=== PATIENT | male | born 1945 | race Caucasian/White ===

== ENCOUNTER 2019-05-01 12:34 | Inpatient (IN) | payer OTHER ==
[2019-05-01 15:41] VITALS: BMI 27.6
--- NOTE | 2019-05-01 17:12 | HP ---
CIWA Score Nausea/Vomitin-No Nausea/No Vomiting Muscle Tremors: 3 Anxiety: 1-Mildly Anxious Agitation: 1-Slight > Activity Paroxysmal Sweats: No Perspiration Orientation: 0-Oriented Tacttile Disturbances: 0-None Auditory Disturbances: 0-None Visual Disturbances: 0-None Headache: 0-None Present CIWA-Ar Total Score: 5 - Admission Criteria OASAS Guidelines: Admission for Medically Managed Detox: Requires at least one of the followin. CIWA greater than 12 2. Seizures within the past 24 hours 3. Delirium tremens within the past 24 hours 4. Hallucinations within the past 24 hours 5. Acute intervention needed for co occurring medical disorder 6. Acute intervention needed for co occurring psychiatric disorder 7. Severe withdrawal that cannot be handled at a lower level of care (continued vomiting, continued diarrhea, abnormal vital signs) requiring intravenous medication and/or fluids 8. Admission ROS [facility] Chief Complaint: alcohol detox Allergies/Adverse Reactions: Allergies Allergy/AdvReac Type Severity Reaction Status Date / Time No Known Allergies Allergy Verified 05/01/19 15:31 History of Present Illness: Patient is a 74 yo M with a PMHx of HTN, asthma, presenting here for alcohol detox. He was hospitalized today for intoxication and was likely given a benzo. Patient is a Poor historian. Not reliable. Has been drinking for 21 years. Drinks 2 pints of vodka every day. Last drink was last night. No hx of seizures. Unemployed. Homeless. Exam Limitations: Language Barrier - Ebola screening Have you traveled outside of the country in the last 21 days: No (N) Have you had contact with anyone from an Ebola affected area: No Do you have a fever: No - Review of Systems Respiratory: reports: Shortness of Breath. denies: Cough Cardiac: denies: Chest Pain, Palpitations Patient History - Patient Medical History Hx Anemia: No Hx Asthma: Yes (albuterol) Hx Chronic Obstructive Pulmonary Disease (COPD): No Hx Cancer: No Hx Cardiac Disorders: No Hx Congestive Heart Failure: No Hx Hypertension: No Hx Hypercholesterolemia: No Hx Pacemaker: No HX Cerebrovascular Accident: No Hx Seizures: No Hx Dementia: No Hx Diabetes: No Hx Gastrointestinal Disorders: No Hx Liver Disease: No Hx Genitourinary Disorders: No Hx Sexually Transmitted Disorders: No Hx Renal Disease (ESRD): No Hx Thyroid Disease: No Hx Human Immunodeficiency Virus (HIV): No Hx Hepatitis C: No Hx Depression: Yes (hx trazadone) Hx Suicide Attempt: No Hx Bipolar Disorder: No Hx Schizophrenia: No - Patient Surgical History Past Surgical History: No Hx Neurologic Surgery: No Hx Cataract Extraction: No Hx Cardiac Surgery: No Hx Lung Surgery: No Hx Breast Surgery: No Hx Breast Biopsy: No Hx Abdominal Surgery: No Hx Appendectomy: No Hx Cholecystectomy: No Hx Genitourinary Surgery: No Hx Section: No Hx Orthopedic Surgery: No Anesthesia Reaction: No - PPD History Date: 05/23/16 - Smoking Cessation Smoking history: Former smoker Have you smoked in the past 12 months: No Aproximately how many cigarettes per day: 0 If you are a former smoker, when did you quit?: 2014 Hx Chewing Tobacco Use: No Initiated information on smoking cessation: Yes 'Breaking Loose' booklet given: 05/01/19 - Substances abused Alcohol Substance route: Oral Frequency: Daily Amount used: 1 -2 pint vodka Age of first use: 23 Date of last use: 04/29/19 Family Disease History - Family Disease History Family History: Unremarkable Family Disease History: Other: Brother (ALCOHOL) Admission Physical Exam BHS - Vital Signs Vital Signs: Vital Signs - 24 hr 05/01/19 15:30 Temperature 98.4 F Pulse Rate 75 Respiratory 18 Rate Blood Pressure 154/93 - Physical General Appearance: Yes: No Apparent Distress Respiratory: Yes: No Respiratory Distress, No Accessory Muscle Use, Wheezing ( mild exp wheezing) Cardiology: Yes: Regular Rate, S1, S2 Abdominal: Yes: Non Tender, Soft Extremities: Yes: Swelling (1+ edema b/l) Integumentary: Yes: Rash Breathalyzer - Breathalyzer Breathalyzer: 0.012 Urine Drug Screen - Test Device Lot number: [id number] Expiration date: 01/24/21 - Control Is test valid?: Yes - Results Drug screen NEGATIVE: No Urine drug screen results: BZO-Benzodiazepines Inpatient Rehab Admission - Rehab Decision to Admit Inpatient rehab admission?: No
[2019-05-01] MEDS ORDERED: chlordiazePOXIDE HCL 10 MG CAPSULE PO PRN (17:54)
[2019-05-01] MEDS ORDERED: METHOCARBAMOL 500 MG TABLET PO PRN (17:55)
[2019-05-01] MEDS ORDERED: MAGNESIUM CITRATE 300 ML BOTTLE PO PRN (17:55)
[2019-05-01] MEDS ORDERED: MENTHOL/PHENOL 1 EACH UD MM PRN (17:55)
[2019-05-01] MEDS ORDERED: MELATONIN 5 MG TABLETS PO PRN (17:55)
[2019-05-01] MEDS ORDERED: MAGNESIUM HYDROX 2400MG/30ML ORAL SUSPENSION 30 ML CUP PO PRN (17:55)
[2019-05-01] MEDS ORDERED: IBUPROFEN 400 MG TABLET (FP) PO PRN (17:55)
[2019-05-01] MEDS ORDERED: BISMUTH SUBSALICYLATE 524 MG/30 ML UD PO PRN (17:55)
[2019-05-01] MEDS ORDERED: ACETAMINOPHEN 325 MG TABLET (FP) PO PRN ×2 (17:55)
[2019-05-01] MEDS ORDERED: MAG HYDROX/AL HYDROX/SIMETH 30 ML UNIT-DOSE CUP PO PRN (17:55)
--- NOTE | 2019-05-01 18:18 | PN ---
Teaching Attending Note Name of Resident: Parmjit Simon ATTENDING PHYSICIAN STATEMENT I saw and evaluated the patient. I reviewed the resident's note and discussed the case with the resident. I agree with the resident's findings and plan as documented. SUBJECTIVE: 74 y.o. male for etoh detox , reports 2 pints / day , reports tremors if not drinking , falls while intoxicated most recently several months ago w/ ? skull frx , unsteady gait . Was in a hospital today- pt does not recall name of hospital or location , states was given IV fluids. PMHx ; asthma, HTN OBJECTIVE: wnwd , tremors UE , anxious, agitated. Vital Signs - 24 hr 05/01/19 15:30 Temperature 98.4 F Pulse Rate 75 Respiratory 18 Rate Blood Pressure 154/93 ASSESSMENT AND PLAN: etoh dependence -Librium detox protocol.
[2019-05-01] MEDS: ALBUTEROL SO4 8 GM HFA INHALER IH SCH ×2 (20:05→21:34)
[2019-05-01] MEDS: chlordiazePOXIDE HCL 25 MG CAPSULE PO SCH (20:06)
[2019-05-01] MEDS: THIAMINE HCL 100 MG TABLET (FP) PO SCH (21:33)
[2019-05-01] MEDS: ALBUTEROL SO4 2.5/IPRATROPIUM 0.5 INH SOL 3 ML VIAL.NEB. NEB SCH (23:16)
[2019-05-01] MEDS: hydrOXYzine PAMOATE 25 MG CAPSULE (FP) PO PRN (23:57)
[2019-05-02] MEDS: ALBUTEROL SO4 8 GM HFA INHALER IH SCH ×3 (03:26→11:03)
[2019-05-02] MEDS: chlordiazePOXIDE HCL 25 MG CAPSULE PO SCH ×3 (06:27→22:40)
[2019-05-02] MEDS: PRENATAL VITAMINS W/ FOLIC ACID TABLET (FP) PO SCH (11:03)
[2019-05-02] MEDS: ALBUTEROL SO4 2.5/IPRATROPIUM 0.5 INH SOL 3 ML VIAL.NEB. NEB SCH ×4 (11:04→22:40)
[2019-05-02 12:11] LABS: HEMATOCRIT 37.9 % (35.4-49); HEMOGLOBIN 12.4 GM/dL (11.7-16.9); MCH 30.1 pg (25.7-33.7); MCHC 32.7 g/dl (32.0-35.9); MEAN CELL VOLUME 92.2 fl (80-96); MEAN PLT VOLUME 9.1 fl (7.5-11.1); PLATELET COUNT 173 K/MM3 (134-434); RBC 4.11 M/mm3 (4.00-5.60); RDW 17.5 % (11.9-15.9); WHITE BLOOD COUNT 5.2 K/mm3 (4.0-10.0)
[2019-05-02 12:23] LABS: ALBUMIN 3.3 g/dl (3.4-5.0); BILIRUBIN,TOTAL 0.6 mg/dL (0.2-1); BLOOD UREA NITROGEN 11.3 mg/dL (7-18); CALCIUM 8.4 mg/dL (8.5-10.1); CREATININE 0.8 mg/dL (0.55-1.3); POTASSIUM 3.1 mmol/L (3.5-5.1); TOT PROT 6.4 g/dl (6.4-8.2)
[2019-05-02] MEDS: hydrOXYzine PAMOATE 25 MG CAPSULE (FP) PO PRN (13:12)
--- NOTE | 2019-05-02 16:43 | PN ---
[facility] CIWA - CIWA Score Nausea/Vomitin-No Nausea/No Vomiting Muscle Tremors: 2 Anxiety: 2 Agitation: 1-Slight > Activity Paroxysmal Sweats: 3 Orientation: 2-Disoriented Date<2 days Tacttile Disturbances: 0-None Auditory Disturbances: 0-None Visual Disturbances: 0-None Headache: 0-None Present CIWA-Ar Total Score: 10 BHS Progress Note (SOAP) Subjective: Fatigue, Anxious, Tremors, Sweating. Objective: PATIENT A & O X 2 (UNCERTAIN ABOUT CURRENT DAY / DATE). PATIENT OBSERVED MOVING ABOUT DETOX UNIT IN A WHEELCHAIR. IN NO ACUTE DISTRESS. 05/02/19 16:40 Vital Signs Temperature 97 F L 05/02/19 14:37 Pulse Rate 78 05/02/19 14:37 Respiratory Rate 16 05/02/19 14:37 Blood Pressure 141/82 05/02/19 14:37 O2 Sat by Pulse Oximetry (%) Laboratory Tests 05/02/19 05/02/19 05/02/19 09:05 09:05 09:05 WBC 5.2 RBC 4.11 Hgb 12.4 Hct 37.9 MCV 92.2 MCH 30.1 MCHC 32.7 RDW 17.5 H Plt Count 173 D MPV 9.1 Sodium 142 Potassium 3.1 L Chloride 102 Carbon Dioxide 29 Anion Gap 11 BUN 11.3 Creatinine 0.8 Est GFR (CKD-EPI)AfAm 103.44 Est GFR (CKD-EPI)NonAf 89.25 Random Glucose 149 H Calcium 8.4 L Total Bilirubin 0.6 AST 23 ALT 21 Alkaline Phosphatase 70 Total Protein 6.4 Albumin 3.3 L RPR Titer Nonreactive LABS NOTED. Assessment: 05/02/19 16:44 WITHDRAWAL SYMPTOMS. HYPOKALEMIA. HYPERGLYCEMIA. 05/02/19 16:44 Plan: CONTINUE DETOX. INCREASE DAILY PO WATER INTAKE. K-DUR, 40 MEQ PO X 1 DOSE TODAY, 20 MEQ PO BID TOMORROW. RE-CHECK K LEVEL ON 03/2019. BGM ACBK FOR ELEVATED RANDOM GLUCOSE LEVEL NOTE DON DETOX ADMISSION LABORATORY ASSESSMENT (NO HISTORY OF DM REPORTED BY PATIENT ON DETOX ADMISSION ASSESSMENT).
[2019-05-02] MEDS ORDERED: POTASSIUM CHLORIDE ORAL LIQUID 20 MEQ/15 ML PO ONE (17:00)
[2019-05-02] MEDS: THIAMINE HCL 100 MG TABLET (FP) PO SCH (22:40)
[2019-05-03] MEDS: chlordiazePOXIDE 5 MG CAPSULE PO SCH ×3 (06:09→22:39)
[2019-05-03] MEDS: ALBUTEROL SO4 8 GM HFA INHALER IH PRN ×2 (06:31→22:40)
[2019-05-03] MEDS: POTASSIUM CHLORIDE ORAL LIQUID 20 MEQ/15 ML PO SCH ×2 (11:04→17:29)
[2019-05-03] MEDS: ALBUTEROL SO4 2.5/IPRATROPIUM 0.5 INH SOL 3 ML VIAL.NEB. NEB SCH ×3 (11:04→22:40)
[2019-05-03] MEDS: PRENATAL VITAMINS W/ FOLIC ACID TABLET (FP) PO SCH (11:04)
[2019-05-03] MEDS ORDERED: ONDANSETRON *ODT* 4 MG TABLET SL PRN (16:24)
--- NOTE | 2019-05-03 16:28 | PN ---
S CIWA - CIWA Score Nausea/Vomitin Muscle Tremors: 3 Anxiety: 3 Agitation: 0-Normal Activity Paroxysmal Sweats: No Perspiration Orientation: 2-Disoriented Date<2 days Tacttile Disturbances: 0-None Auditory Disturbances: 0-None Visual Disturbances: 0-None Headache: 2-Mild CIWA-Ar Total Score: 15 BHS Progress Note (SOAP) Subjective: Vomiting, H/A, Tremors. Objective: PATIENT A & O X 2 (UNCERTAIN ABOUT CURRENT DAY / DATE). IN NO ACUTE DISTRESS. 05/03/19 16:24 Vital Signs Temperature 98.8 F 05/03/19 13:21 Pulse Rate 71 05/03/19 13:21 Respiratory Rate 18 05/03/19 13:21 Blood Pressure 140/78 05/03/19 13:21 O2 Sat by Pulse Oximetry (%) Laboratory Tests 05/02/19 05/02/19 05/02/19 09:05 09:05 09:05 WBC 5.2 RBC 4.11 Hgb 12.4 Hct 37.9 MCV 92.2 MCH 30.1 MCHC 32.7 RDW 17.5 H Plt Count 173 D MPV 9.1 Sodium 142 Potassium 3.1 L Chloride 102 Carbon Dioxide 29 Anion Gap 11 BUN 11.3 Creatinine 0.8 Est GFR (CKD-EPI)AfAm 103.44 Est GFR (CKD-EPI)NonAf 89.25 POC Glucometer Random Glucose 149 H Calcium 8.4 L Total Bilirubin 0.6 AST 23 ALT 21 Alkaline Phosphatase 70 Total Protein 6.4 Albumin 3.3 L RPR Titer Nonreactive 05/03/19 06:23 WBC RBC Hgb Hct MCV MCH MCHC RDW Plt Count MPV Sodium Potassium Chloride Carbon Dioxide Anion Gap BUN Creatinine Est GFR (CKD-EPI)AfAm Est GFR (CKD-EPI)NonAf POC Glucometer 99 Random Glucose Calcium Total Bilirubin AST ALT Alkaline Phosphatase Total Protein Albumin RPR Titer LABS NOTED. RESTING OF FASTING BGM FROM EARLIER THIS AM NOTED (RESULT: 99, WITHIN NORMAL RANGE). 05/03/19 16:26 Assessment: 05/03/19 16:25 WITHDRAWAL SYMPTOMS. HYPOKALEMIA. 05/03/19 16:26 Plan: CONTINUE DETOX. PRN ZOFRAN SL FOR NAUSEA / VOMITING. REPEAT POTASSIUM LEVEL ORDERED FOR TOMORROW AM TO SEE IF ANY CHANGE FORM DETOX ADMISSION POTASSIUM LEVEL.
[2019-05-03] MEDS: THIAMINE HCL 100 MG TABLET (FP) PO SCH (22:39)
[2019-05-04] MEDS ORDERED: chlordiazePOXIDE HCL 10 MG CAPSULE PO PRN
[2019-05-04] MEDS: chlordiazePOXIDE HCL 10 MG CAPSULE PO SCH ×3 (06:06→22:58)
[2019-05-04] MEDS: ALBUTEROL SO4 2.5/IPRATROPIUM 0.5 INH SOL 3 ML VIAL.NEB. NEB SCH ×5 (07:16→23:00)
[2019-05-04] MEDS: PRENATAL VITAMINS W/ FOLIC ACID TABLET (FP) PO SCH (10:47)
--- NOTE | 2019-05-04 10:48 | PN ---
[facility] CIWA - CIWA Score Nausea/Vomitin-No Nausea/No Vomiting Muscle Tremors: 3 Anxiety: 2 Agitation: 1-Slight > Activity Paroxysmal Sweats: 1-Minimal Palms Moist Orientation: 0-Oriented Tacttile Disturbances: 1-Very Mild Itch/Numbness Auditory Disturbances: 0-None Visual Disturbances: 1-Very Mild Sensitivity Headache: 2-Mild CIWA-Ar Total Score: 11 S Progress Note (SOAP) Subjective: 74 years old male 1st patient [facility] since 2019 was admitted on 05/01/19 for alcohol withdrawal sx management doing well with librum detox regimen discuss aftercare with staff [facility] Objective: 05/04/19 11:07 Vital Signs Temperature 99.0 F 05/04/19 09:36 Pulse Rate 70 05/04/19 09:36 Respiratory Rate 20 05/04/19 09:36 Blood Pressure 150/86 05/04/19 09:36 O2 Sat by Pulse Oximetry (%) Laboratory Last Values WBC 5.2 K/mm3 (4.0-10.0) 05/02/19 09:05 RBC 4.11 M/mm3 (4.00-5.60) 05/02/19 09:05 Hgb 12.4 GM/dL (11.7-16.9) 05/02/19 09:05 Hct 37.9 % (35.4-49) 05/02/19 09:05 MCV 92.2 fl (80-96) 05/02/19 09:05 MCH 30.1 pg (25.7-33.7) 05/02/19 09:05 MCHC 32.7 g/dl (32.0-35.9) 05/02/19 09:05 RDW 17.5 % (11.9-15.9) H 05/02/19 09:05 Plt Count 173 K/MM3 (134-434) D 05/02/19 09:05 MPV 9.1 fl (7.5-11.1) 05/02/19 09:05 Sodium 142 mmol/L (136-145) 05/02/19 09:05 Potassium 4.2 mmol/L (3.5-5.1) 05/04/19 08:00 Chloride 102 mmol/L (98-107) 05/02/19 09:05 Carbon Dioxide 29 mmol/L (21-32) 05/02/19 09:05 Anion Gap 11 MMOL/L (8-16) 05/02/19 09:05 BUN 11.3 mg/dL (7-18) 05/02/19 09:05 Creatinine 0.8 mg/dL (0.55-1.3) 05/02/19 09:05 Est GFR (CKD-EPI)AfAm 103.44 05/02/19 09:05 Est GFR (CKD-EPI)NonAf 89.25 05/02/19 09:05 POC Glucometer 107 UNITS (80-120) 05/04/19 07:31 Random Glucose 149 mg/dL (74-106) H 05/02/19 09:05 Calcium 8.4 mg/dL (8.5-10.1) L 05/02/19 09:05 Total Bilirubin 0.6 mg/dL (0.2-1) 05/02/19 09:05 AST 23 U/L (15-37) 05/02/19 09:05 ALT 21 U/L (13-61) 05/02/19 09:05 Alkaline Phosphatase 70 U/L (45-117) 05/02/19 09:05 Total Protein 6.4 g/dl (6.4-8.2) 05/02/19 09:05 Albumin 3.3 g/dl (3.4-5.0) L 05/02/19 09:05 RPR Titer Nonreactive (NONREACTIVE) 05/02/19 09:05 lab noted bp elevation begin lisinopril 5 mg po daily Assessment: 05/04/19 11:15 alcohol withdrawal sx ambulating with wheelchair on hallway due to shortness of breath when ambulating by foot 05/04/19 11:16 patient is eating while talking with the staff, no trouble chewing nor swallowing, spoken with complete sentence, skin warm and moist good eye contact Plan: continue librium detox regimen
[2019-05-04] MEDS: LISINOPRIL 5 MG TABLET (FP) PO SCH (11:04)
[2019-05-04] MEDS: THIAMINE HCL 100 MG TABLET (FP) PO SCH (22:57)
[2019-05-04] MEDS: ALBUTEROL SO4 8 GM HFA INHALER IH PRN (22:59)
[2019-05-05] MEDS ORDERED: chlordiazePOXIDE HCL 10 MG CAPSULE PO ONE (05:00)
[2019-05-05] MEDS: ALBUTEROL SO4 8 GM HFA INHALER IH PRN (07:35)
[2019-05-05] MEDS: LISINOPRIL 5 MG TABLET (FP) PO SCH (10:39)
[2019-05-05] MEDS: PRENATAL VITAMINS W/ FOLIC ACID TABLET (FP) PO SCH (10:39)
[2019-05-05 14:23] VITALS: BP 154/85; PULSE 85; TEMP 98.9
--- NOTE | 2019-05-05 15:21 | DS ---
[facility] Detox Discharge Summary Admission Date: 05/01/19 Discharge Date: 05/05/19 - History Present History: Alcohol Dependence Additional Comments: 74 years old male admitted on 05/01/19 for alcohol withdrawal sx management did well with librium detox regimen no complication through out the detox stady alert oriented x 3 no wheezing no shortness of breath denies dizziness steady gait - Physical Exam Results Vital Signs: Vital Signs Temperature 98.9 F 05/05/19 13:22 Pulse Rate 85 05/05/19 13:22 Respiratory Rate 18 05/05/19 13:22 Blood Pressure 154/85 05/05/19 13:22 O2 Sat by Pulse Oximetry (%) Pertinent Admission Physical Exam Findings: alcohol withdrawal sx Laboratory Last Values WBC 5.2 K/mm3 (4.0-10.0) 05/02/19 09:05 RBC 4.11 M/mm3 (4.00-5.60) 05/02/19 09:05 Hgb 12.4 GM/dL (11.7-16.9) 05/02/19 09:05 Hct 37.9 % (35.4-49) 05/02/19 09:05 MCV 92.2 fl (80-96) 05/02/19 09:05 MCH 30.1 pg (25.7-33.7) 05/02/19 09:05 MCHC 32.7 g/dl (32.0-35.9) 05/02/19 09:05 RDW 17.5 % (11.9-15.9) H 05/02/19 09:05 Plt Count 173 K/MM3 (134-434) D 05/02/19 09:05 MPV 9.1 fl (7.5-11.1) 05/02/19 09:05 Sodium 142 mmol/L (136-145) 05/02/19 09:05 Potassium 4.2 mmol/L (3.5-5.1) 05/04/19 08:00 Chloride 102 mmol/L (98-107) 05/02/19 09:05 Carbon Dioxide 29 mmol/L (21-32) 05/02/19 09:05 Anion Gap 11 MMOL/L (8-16) 05/02/19 09:05 BUN 11.3 mg/dL (7-18) 05/02/19 09:05 Creatinine 0.8 mg/dL (0.55-1.3) 05/02/19 09:05 Est GFR (CKD-EPI)AfAm 103.44 05/02/19 09:05 Est GFR (CKD-EPI)NonAf 89.25 05/02/19 09:05 POC Glucometer 114 UNITS (80-120) 05/05/19 07:11 Random Glucose 149 mg/dL (74-106) H 05/02/19 09:05 Calcium 8.4 mg/dL (8.5-10.1) L 05/02/19 09:05 Total Bilirubin 0.6 mg/dL (0.2-1) 05/02/19 09:05 AST 23 U/L (15-37) 05/02/19 09:05 ALT 21 U/L (13-61) 05/02/19 09:05 Alkaline Phosphatase 70 U/L (45-117) 05/02/19 09:05 Total Protein 6.4 g/dl (6.4-8.2) 05/02/19 09:05 Albumin 3.3 g/dl (3.4-5.0) L 05/02/19 09:05 RPR Titer Nonreactive (NONREACTIVE) 05/02/19 09:05 lab noted - Treatment Hospital Course: Detox Protocol Followed, Detoxed Safely, Responded well, Discharged Condition Good, Rehab Referral Accepted Patient has Accepted a Rehab Referral to: [facility] - Medication Discharge Medications: Ambulatory Orders Albuterol Sulfate Inhaler - [Ventolin HFA Inhaler -] 2 puff PO Q4H #1 inhaler Lisinopril [Prinivil] 5 mg PO DAILY #30 tablet 05/04/19 - Diagnosis (1) Alcohol dependence with uncomplicated withdrawal Status: Acute (2) Asthma Status: Chronic Qualifiers: Asthma severity: mild Asthma persistence: intermittent Asthma complication type: uncomplicated Qualified Code(s): J45.20 - Mild intermittent asthma, uncomplicated (3) Dermatitis Status: Chronic (4) Use of cane as ambulatory aid Status: Chronic - AMA Did Patient Leave Against Medical Advice: No
== END 2019-05-05 15:14 | disposition other institution (70) | DRG 775 ==
LOC: EDBD → YASAS 12:34 → Y3N 18:08
PROVIDERS: ADMIT Surgery; ATTEND Surgery
PROC: HZ2ZZZZ Detoxification Services for Substance Abuse Treatment (ICD-10-PCS; principal; 2019-05-01)
DX: F10.230 Alcohol dependence with withdrawal, uncomplicated (principal); J45.20 Mild intermittent asthma, uncomplicated; L30.9 Dermatitis, unspecified; E87.6 Hypokalemia; R73.9 Hyperglycemia, unspecified; R26.2 Difficulty in walking, not elsewhere classified; Z99.89 Dependence on other enabling machines and devices; Z87.891 Personal history of nicotine dependence; Z59.0 Homelessness
CPT/HCPCS: 36415; 80053; 82962; 84132; 85027; 86593; 94640

== ENCOUNTER 2019-05-05 15:07 | Inpatient (IN) | payer OTHER ==
[2019-05-05] MEDS ORDERED: MAG HYDROX/AL HYDROX/SIMETH 30 ML UNIT-DOSE CUP PO PRN (15:26)
[2019-05-05] MEDS ORDERED: MAGNESIUM CITRATE 300 ML BOTTLE PO PRN (15:26)
[2019-05-05] MEDS ORDERED: MAGNESIUM HYDROX 2400MG/30ML ORAL SUSPENSION 30 ML CUP PO PRN (15:26)
[2019-05-05] MEDS ORDERED: P-EPHED 60MG/TRIPROLIDI 2.5MG TABLET PO PRN (15:26)
[2019-05-05] MEDS ORDERED: ACETAMINOPHEN 325 MG TABLET (FP) PO PRN (15:26)
[2019-05-05] MEDS ORDERED: IBUPROFEN 400 MG TABLET (FP) PO PRN (15:26)
[2019-05-05] MEDS ORDERED: LOPERAMIDE HCL 2 MG CAPSULE PO PRN (15:26)
[2019-05-05] MEDS ORDERED: guaiFENesin 200 MG/10 ML 10 ML UNIT-DOSE CUPS PO PRN (15:26)
[2019-05-05] MEDS ORDERED: MENTHOL/PHENOL 1 EACH UD MM PRN (15:26)
--- NOTE | 2019-05-05 15:26 | HP ---
[facility] Rehab Assess/Revision - Admission History Admitted to Rehab from: [facility] Date of Admission to Rehab: 05/05/19 - Findings Detox History & Physical reviewed: Yes Concur with findings: Yes Comments/Additional Findings: transferred from detox to rehab admission as per protocol Inpatient Rehab Admission - Rehab Decision to Admit Inpatient rehab admission?: Yes - Initial Determination Are CD services needed?: Yes Free of communicable disease: Yes Not in need of hospitalization: Yes - Rehab Admission Criteria Previous failed treatment: Yes Poor recovery environment: Yes Comorbidities: Yes Lacks judgement: Yes Patient is meeting Inpatient Rehab admission criteria:: Yes
[2019-05-05] MEDS: HYDROCORTISONE 1% TOPICAL CREAM 30 GM TUBE TP SCH ×2 (18:26→21:30)
[2019-05-05] MEDS: ALBUTEROL SO4 8 GM HFA INHALER IH PRN (19:29)
[2019-05-05] MEDS: THIAMINE HCL 100 MG TABLET (FP) PO SCH (21:31)
[2019-05-05] MEDS ORDERED: PT OWN MED DRAWER 7, Y5N ONE (22:44)
[2019-05-06] MEDS: ALBUTEROL SO4 8 GM HFA INHALER IH PRN ×2 (00:36→06:09)
[2019-05-06] MEDS: LISINOPRIL 5 MG TABLET (FP) PO SCH (09:50)
[2019-05-06] MEDS: PRENATAL VITAMINS W/ FOLIC ACID TABLET (FP) PO SCH (09:50)
[2019-05-06] MEDS: HYDROCORTISONE 1% TOPICAL CREAM 30 GM TUBE TP SCH ×4 (09:50→21:25)
[2019-05-06] MEDS: THIAMINE HCL 100 MG TABLET (FP) PO SCH (21:23)
[2019-05-06] MEDS: MELATONIN 5 MG TABLETS PO PRN (21:24)
[2019-05-07] MEDS: ALBUTEROL SO4 0.083% IH SOL 2.5 MG/3 ML VIAL.NEB. NEB PRN (06:15)
[2019-05-07] MEDS: HYDROCORTISONE 1% TOPICAL CREAM 30 GM TUBE TP SCH ×4 (10:17→21:45)
[2019-05-07] MEDS: PRENATAL VITAMINS W/ FOLIC ACID TABLET (FP) PO SCH (10:18)
[2019-05-07] MEDS: LISINOPRIL 5 MG TABLET (FP) PO SCH (10:18)
[2019-05-07] MEDS: ALBUTEROL SO4 8 GM HFA INHALER IH PRN ×2 (10:19→15:56)
[2019-05-07] MEDS: THIAMINE HCL 100 MG TABLET (FP) PO SCH (21:45)
[2019-05-07] MEDS: MELATONIN 5 MG TABLETS PO PRN (21:45)
[2019-05-08] MEDS: PRENATAL VITAMINS W/ FOLIC ACID TABLET (FP) PO SCH (09:46)
[2019-05-08] MEDS: AMMONIUM LACTATE 12% LOTION 225 GM BOTTLE TP PRN (09:46)
[2019-05-08] MEDS: LISINOPRIL 5 MG TABLET (FP) PO SCH (09:46)
[2019-05-08] MEDS: HYDROCORTISONE 1% TOPICAL CREAM 30 GM TUBE TP SCH ×4 (09:47→21:12)
--- NOTE | 2019-05-08 10:25 | PN ---
S Progress Note (SOAP) Subjective: Patient is requesting some medications. However he only speaks Urdu. We used the interpretation service, [employer] to address his needs. JESUS ALBERTO Alves remained with this provider as an observer during the translation process. Patient is stating that he has a sleeping problem and a "blood problem" with ETOH abuse and he went to 8 different clinics that were unable to help him. He states he has itching. Patient completed detox for ETOH abuse and was transferred to rehab this week. Objective: General: no apparent distress HEENT: normocelphic skin: clear neuro: no neurological deficits noted. skin: clear, no rashes, or discoloration throughout trunk and extremities. 05/08/19 10:48 05/08/19 10:50 Assessment: Itching, Insomnia 05/08/19 10:49 Plan: Itching: Patient has hydrocortisone cream, benadryl cream, and lac-hydrin as well as benadryl po for itching Insomnia: a referral was made to psychiatry to evaluate insomnia and treat. Patient was encouraged to ask the patient for the medications when he needed them. Patient was informed of this treatment through the director clinical data and indicated he his understanding of the same.
[2019-05-08] MEDS: diphenhydrAMINE HCL 25 MG CAPSULE (FP) PO PRN ×2 (10:50→21:13)
[2019-05-08] MEDS: MELATONIN 5 MG TABLETS PO PRN (21:12)
[2019-05-08] MEDS: THIAMINE HCL 100 MG TABLET (FP) PO SCH (21:12)
[2019-05-09] MEDS: ALBUTEROL SO4 0.083% IH SOL 2.5 MG/3 ML VIAL.NEB. NEB PRN (03:26)
[2019-05-09] MEDS: PRENATAL VITAMINS W/ FOLIC ACID TABLET (FP) PO SCH (09:45)
[2019-05-09] MEDS: LISINOPRIL 5 MG TABLET (FP) PO SCH (09:45)
[2019-05-09] MEDS: ALBUTEROL SO4 8 GM HFA INHALER IH PRN (09:46)
[2019-05-09] MEDS ORDERED: PT OWN MED DRAWER 7, Y5N ONE (09:59)
[2019-05-09] MEDS: diphenhydrAMINE HCL 25 MG CAPSULE (FP) PO PRN ×2 (09:59→17:17)
[2019-05-09] MEDS: HYDROCORTISONE 1% TOPICAL CREAM 30 GM TUBE TP SCH ×4 (10:28→21:31)
--- NOTE | 2019-05-09 14:27 | CONSULT ---
[facility] Psychiatric Consult - Data Date of interview: 05/09/19 Admission source: 3N Identifying data: Mr Thurston is a 74 years old [place]born male, father of 2 children, unemployed receiving food stamp, homeless seeking admited to inpatient rehab on 05/05/19 for alcohol Substance Abuse History: Reports history of alcohol use. Refer to addiction counselor summary for further information Medical History: Significant for bronchial asthma and dermatitis. Psychiatric History: Denies history of previous psychiatric treatment Physical/Sexual Abuse/Trauma History: Patient denies history of sexual abuse. Reportedly served in the [employer] and saw combat in [facility] in the 's. No report of flashbacks or nightmares. Mental Status Exam - Mental Status Exam Alert and Oriented to: Time, Place, Person Cognitive Function: Fair Patient Appearance: Disheveled Mood: Sad Affect: Appropriate Patient Behavior: Cooperative Speech Pattern: Clear Voice Loudness: Normal Thought Process: Intact, Goal Oriented Thought Disorder: Not Present Hallucinations: Denies Suicidal Ideation: Denies Homicidal Ideation: Denies Insight/Judgement: Poor Sleep: Fair Appetite: Good Muscle strength/Tone: Normal Gait/Station: Normal Psychiatric Findings - Problem List ([place] 1, 2,3) (1) Alcohol-induced mood disorder Current Visit: Yes Status: Acute (2) Alcohol-induced sleep disorder Current Visit: No Status: Acute (3) Alcohol dependence with uncomplicated withdrawal Current Visit: No Status: Acute (4) Asthma Current Visit: No Status: Chronic Qualifiers: Asthma severity: mild Asthma persistence: intermittent Asthma complication type: uncomplicated Qualified Code(s): J45.20 - Mild intermittent asthma, uncomplicated - Initial Treatment Plan Initial Treatment Plan: 1) Start Belsomra 10 mg po HS prn for insomnia. 2) Continue inpatient rehabilitation
[2019-05-09] MEDS: THIAMINE HCL 100 MG TABLET (FP) PO SCH (21:30)
[2019-05-09] MEDS: MELATONIN 5 MG TABLETS PO PRN (21:30)
[2019-05-09] MEDS ORDERED: SUVOREXANT 10 MG TABLET PO PRN (22:00)
[2019-05-10] MEDS: diphenhydrAMINE HCL 25 MG CAPSULE (FP) PO PRN ×3 (09:46→22:44)
[2019-05-10] MEDS: PRENATAL VITAMINS W/ FOLIC ACID TABLET (FP) PO SCH (09:46)
[2019-05-10] MEDS: HYDROCORTISONE 1% TOPICAL CREAM 30 GM TUBE TP SCH ×4 (09:46→21:15)
[2019-05-10] MEDS: LISINOPRIL 5 MG TABLET (FP) PO SCH (09:46)
[2019-05-10] MEDS ORDERED: ALBUTEROL SO4 0.083% IH SOL 2.5 MG/3 ML VIAL.NEB. NEB PRN (15:27)
[2019-05-10] MEDS: THIAMINE HCL 100 MG TABLET (FP) PO SCH (21:14)
[2019-05-10] MEDS: MELATONIN 5 MG TABLETS PO PRN (21:15)
[2019-05-10] MEDS: ALBUTEROL SO4 8 GM HFA INHALER IH PRN (21:18)
[2019-05-11] MEDS: PRENATAL VITAMINS W/ FOLIC ACID TABLET (FP) PO SCH (10:08)
[2019-05-11] MEDS: LISINOPRIL 5 MG TABLET (FP) PO SCH (10:08)
[2019-05-11] MEDS: diphenhydrAMINE HCL 25 MG CAPSULE (FP) PO PRN ×3 (10:08→21:30)
[2019-05-11] MEDS: HYDROCORTISONE 1% TOPICAL CREAM 30 GM TUBE TP SCH ×4 (10:09→21:28)
[2019-05-11] MEDS: THIAMINE HCL 100 MG TABLET (FP) PO SCH (21:28)
[2019-05-11] MEDS: MELATONIN 5 MG TABLETS PO PRN (21:29)
[2019-05-11] MEDS: ALBUTEROL SO4 8 GM HFA INHALER IH PRN (21:31)
[2019-05-12] MEDS: PRENATAL VITAMINS W/ FOLIC ACID TABLET (FP) PO SCH (10:14)
[2019-05-12] MEDS: LISINOPRIL 5 MG TABLET (FP) PO SCH (10:14)
[2019-05-12] MEDS: HYDROCORTISONE 1% TOPICAL CREAM 30 GM TUBE TP SCH ×4 (10:14→21:42)
[2019-05-12] MEDS: diphenhydrAMINE HCL 25 MG CAPSULE (FP) PO PRN (10:15)
[2019-05-12] MEDS: ALBUTEROL SO4 8 GM HFA INHALER IH PRN (10:17)
[2019-05-12] MEDS: MELATONIN 5 MG TABLETS PO PRN (21:29)
[2019-05-12] MEDS: THIAMINE HCL 100 MG TABLET (FP) PO SCH (21:29)
[2019-05-12] MEDS: SUVOREXANT 10 MG TABLET PO PRN (21:32)
[2019-05-12] MEDS ORDERED: PT OWN MED DRAWER 7, Y5N ONE (21:34)
[2019-05-13] MEDS: ALBUTEROL SO4 8 GM HFA INHALER IH PRN (06:54)
[2019-05-13] MEDS ORDERED: PT OWN MED DRAWER 7, Y5N ONE ×2 (08:50→09:46)
[2019-05-13] MEDS: PRENATAL VITAMINS W/ FOLIC ACID TABLET (FP) PO SCH (09:44)
[2019-05-13] MEDS: AMMONIUM LACTATE 12% LOTION 225 GM BOTTLE TP PRN (09:44)
[2019-05-13] MEDS: LISINOPRIL 5 MG TABLET (FP) PO SCH (09:44)
[2019-05-13] MEDS: HYDROCORTISONE 1% TOPICAL CREAM 30 GM TUBE TP SCH ×4 (10:03→21:37)
[2019-05-13] MEDS: diphenhydrAMINE HCL 25 MG CAPSULE (FP) PO PRN ×2 (12:26→21:38)
[2019-05-13] MEDS: THIAMINE HCL 100 MG TABLET (FP) PO SCH (21:37)
[2019-05-13] MEDS: MELATONIN 5 MG TABLETS PO PRN (21:38)
[2019-05-14] MEDS: ALBUTEROL SO4 8 GM HFA INHALER IH PRN ×2 (06:04→09:59)
[2019-05-14] MEDS: PRENATAL VITAMINS W/ FOLIC ACID TABLET (FP) PO SCH (09:59)
[2019-05-14] MEDS: LISINOPRIL 5 MG TABLET (FP) PO SCH (09:59)
[2019-05-14] MEDS: diphenhydrAMINE HCL 25 MG CAPSULE (FP) PO PRN (09:59)
[2019-05-14] MEDS: HYDROCORTISONE 1% TOPICAL CREAM 30 GM TUBE TP SCH ×4 (10:00→22:10)
[2019-05-14] MEDS: MELATONIN 5 MG TABLETS PO PRN (21:17)
[2019-05-14] MEDS: diphenhydrAMINE HCL 50 MG CAPSULE PO PRN (21:17)
[2019-05-14] MEDS: THIAMINE HCL 100 MG TABLET (FP) PO SCH (21:17)
[2019-05-15] MEDS: PRENATAL VITAMINS W/ FOLIC ACID TABLET (FP) PO SCH (09:49)
[2019-05-15] MEDS: LISINOPRIL 5 MG TABLET (FP) PO SCH (09:49)
[2019-05-15] MEDS: diphenhydrAMINE HCL 50 MG CAPSULE PO PRN ×2 (09:49→21:27)
[2019-05-15] MEDS: HYDROCORTISONE 1% TOPICAL CREAM 30 GM TUBE TP SCH ×4 (09:51→22:06)
[2019-05-15] MEDS: ALBUTEROL SO4 8 GM HFA INHALER IH PRN (09:52)
[2019-05-15] MEDS: THIAMINE HCL 100 MG TABLET (FP) PO SCH (21:24)
[2019-05-15] MEDS: SUVOREXANT 10 MG TABLET PO PRN (21:25)
[2019-05-16] MEDS: ALBUTEROL SO4 8 GM HFA INHALER IH PRN (06:48)
[2019-05-16] MEDS ORDERED: PT OWN MED DRAWER 7, Y5N ONE (08:56)
[2019-05-16] MEDS: HYDROCORTISONE 1% TOPICAL CREAM 30 GM TUBE TP SCH ×2 (09:42→13:24)
[2019-05-16] MEDS: PRENATAL VITAMINS W/ FOLIC ACID TABLET (FP) PO SCH (09:42)
[2019-05-16] MEDS: diphenhydrAMINE HCL 50 MG CAPSULE PO PRN ×3 (09:42→21:13)
[2019-05-16] MEDS: LISINOPRIL 5 MG TABLET (FP) PO SCH (09:42)
--- NOTE | 2019-05-16 14:14 | PN ---
S Progress Note Note: Patient c/o itching and rash to arms. States current treatment with Hydrocortisone 1% not helping symptoms. Patient admitted to rehab for Etoh dependence. Vital Signs Temperature 98.4 F 05/16/19 06:36 Pulse Rate 80 05/16/19 10:00 Respiratory Rate 18 05/16/19 06:36 Blood Pressure 111/69 05/16/19 10:00 O2 Sat by Pulse Oximetry (%) Laboratory Tests 05/07/19 05/08/19 06:13 06:31 POC Glucometer 115 116 PE alert and oriented x 3 skin warm and dry, + dry patches/rash to upper arms no open areas neck supple,no jvd gi nt, nd ext full rom, amb with cane wheelchair for long distance A/P dry skin Pruritis Will d/c current dose of hydrocortisone start Hydrocortison 2.5% bid continue benadryl prn monitor clinically
[2019-05-16] MEDS: THIAMINE HCL 100 MG TABLET (FP) PO SCH (21:12)
[2019-05-16] MEDS: HYDROCORTISONE 2.5% LOTION - 1 BOTTLE TP SCH (21:12)
[2019-05-16] MEDS: MELATONIN 5 MG TABLETS PO PRN (21:12)
[2019-05-17] MEDS: LISINOPRIL 5 MG TABLET (FP) PO SCH (09:43)
[2019-05-17] MEDS: HYDROCORTISONE 2.5% LOTION - 1 BOTTLE TP SCH ×2 (09:43→21:16)
[2019-05-17] MEDS: PRENATAL VITAMINS W/ FOLIC ACID TABLET (FP) PO SCH (09:43)
[2019-05-17] MEDS: ALBUTEROL SO4 8 GM HFA INHALER IH PRN (09:44)
[2019-05-17] MEDS: diphenhydrAMINE HCL 50 MG CAPSULE PO PRN ×2 (09:46→21:17)
[2019-05-17] MEDS: MELATONIN 5 MG TABLETS PO PRN (21:17)
[2019-05-17] MEDS: THIAMINE HCL 100 MG TABLET (FP) PO SCH (21:17)
[2019-05-18] MEDS: HYDROCORTISONE 2.5% LOTION - 1 BOTTLE TP SCH ×2 (09:50→21:27)
[2019-05-18] MEDS: LISINOPRIL 5 MG TABLET (FP) PO SCH (09:52)
[2019-05-18] MEDS: PRENATAL VITAMINS W/ FOLIC ACID TABLET (FP) PO SCH (09:52)
[2019-05-18] MEDS: diphenhydrAMINE HCL 50 MG CAPSULE PO PRN ×2 (09:53→21:26)
[2019-05-18] MEDS: MELATONIN 5 MG TABLETS PO PRN (21:26)
[2019-05-18] MEDS: THIAMINE HCL 100 MG TABLET (FP) PO SCH (21:26)
[2019-05-19] MEDS: PRENATAL VITAMINS W/ FOLIC ACID TABLET (FP) PO SCH (09:56)
[2019-05-19] MEDS: diphenhydrAMINE HCL 50 MG CAPSULE PO PRN ×2 (09:57→21:26)
[2019-05-19] MEDS: LISINOPRIL 5 MG TABLET (FP) PO SCH (09:57)
[2019-05-19] MEDS: HYDROCORTISONE 2.5% LOTION - 1 BOTTLE TP SCH ×2 (09:59→21:25)
[2019-05-19] MEDS: ALBUTEROL SO4 8 GM HFA INHALER IH PRN (10:00)
[2019-05-19] MEDS ORDERED: PT OWN MED DRAWER 7, Y5N ONE ×4 (16:09→21:25)
[2019-05-19] MEDS: THIAMINE HCL 100 MG TABLET (FP) PO SCH (21:22)
[2019-05-19] MEDS: MELATONIN 5 MG TABLETS PO PRN (21:23)
[2019-05-19] MEDS: AMMONIUM LACTATE 12% LOTION 225 GM BOTTLE TP PRN (21:24)
[2019-05-20] MEDS: HYDROCORTISONE 2.5% LOTION - 1 BOTTLE TP SCH ×2 (09:35→21:07)
[2019-05-20] MEDS: LISINOPRIL 5 MG TABLET (FP) PO SCH (09:35)
[2019-05-20] MEDS: PRENATAL VITAMINS W/ FOLIC ACID TABLET (FP) PO SCH (09:35)
[2019-05-20] MEDS: diphenhydrAMINE HCL 50 MG CAPSULE PO PRN ×2 (09:36→21:07)
[2019-05-20] MEDS: ALBUTEROL SO4 8 GM HFA INHALER IH PRN (09:37)
[2019-05-20] MEDS ORDERED: COLLOIDAL OATMEAL 1 BAR EACH TP PRN (11:12)
[2019-05-20] MEDS ORDERED: MINERAL OIL/PETROLAT/WATER TOPICAL CREAM 113 GM JAR TP PRN (14:35)
[2019-05-20] MEDS: SELENIUM SULFIDE 2.5% LOTION 4 OZ. TP SCH (14:53)
[2019-05-20] MEDS: MELATONIN 5 MG TABLETS PO PRN (21:07)
[2019-05-20] MEDS: hydrOXYzine PAMOATE 25 MG CAPSULE (FP) PO PRN (21:07)
[2019-05-20] MEDS: THIAMINE HCL 100 MG TABLET (FP) PO SCH (21:07)
[2019-05-21] MEDS: ALBUTEROL SO4 8 GM HFA INHALER IH PRN ×2 (06:18→10:40)
[2019-05-21] MEDS: LISINOPRIL 5 MG TABLET (FP) PO SCH (10:36)
[2019-05-21] MEDS: PRENATAL VITAMINS W/ FOLIC ACID TABLET (FP) PO SCH (10:36)
[2019-05-21] MEDS: diphenhydrAMINE HCL 50 MG CAPSULE PO PRN ×2 (10:36→21:41)
[2019-05-21] MEDS: hydrOXYzine PAMOATE 25 MG CAPSULE (FP) PO PRN ×2 (10:37→21:42)
[2019-05-21] MEDS: SELENIUM SULFIDE 2.5% LOTION 4 OZ. TP SCH (10:37)
[2019-05-21] MEDS: HYDROCORTISONE 2.5% LOTION - 1 BOTTLE TP SCH ×2 (10:38→21:42)
[2019-05-21] MEDS: MELATONIN 5 MG TABLETS PO PRN (21:41)
[2019-05-21] MEDS: THIAMINE HCL 100 MG TABLET (FP) PO SCH (21:41)
[2019-05-22 07:09] VITALS: TEMP 98.2
[2019-05-22] MEDS: PRENATAL VITAMINS W/ FOLIC ACID TABLET (FP) PO SCH (09:19)
[2019-05-22] MEDS: ALBUTEROL SO4 8 GM HFA INHALER IH PRN (09:19)
[2019-05-22] MEDS: LISINOPRIL 5 MG TABLET (FP) PO SCH (09:20)
[2019-05-22] MEDS: diphenhydrAMINE HCL 50 MG CAPSULE PO PRN (09:20)
[2019-05-22] MEDS: SELENIUM SULFIDE 2.5% LOTION 4 OZ. TP SCH (09:21)
[2019-05-22] MEDS: HYDROCORTISONE 2.5% LOTION - 1 BOTTLE TP SCH (09:21)
[2019-05-22] MEDS ORDERED: PT OWN MED DRAWER 7, Y5N ONE ×2 (09:22→12:43)
[2019-05-22 11:14] VITALS: BP 112/72; PULSE 89
--- NOTE | 2019-05-22 12:53 | DS ---
[facility] Rehab Discharge Summary - [facility] Rehab Discharge Summary Admission Date: 05/05/19 Discharge Date: 05/22/19 - History Present History: Alcohol dependence Pertinent Past History: Patient is a 74 yo M with a PMHx of HTN, asthma. Has been drinking for 21 years. Drinks 2 pints of vodka every day. No hx of seizures. Unemployed. Homeless. - Discharge Physical Exam Vital Signs: Vital Signs Temperature 98.2 F 05/22/19 07:08 Pulse Rate 89 05/22/19 09:30 Respiratory Rate 18 05/22/19 09:30 Blood Pressure 112/72 05/22/19 09:30 O2 Sat by Pulse Oximetry (%) Pertinent Admission Physical Exam Findings: Physical General Appearance: Yes: No Apparent Distress HEENTM: PERRLA Respiratory: clear Cardiology: S1, S2 Abdominal: +BS, Non Tender, Soft Integumentary: skin clear, no rash, color consistent throughout trunk and extremities. MSK: Weight bearing with a cane, limited ROM r/t debilitation - Treatment Discharge Condition: Outpatient referral accepted (Patient medically stable for discharge.Patient is seeking early discharge and has been referred to [facility]. Patient has refused a referral for aftercare.) Hospital Course: Patient attended groups and was adherent to his medication regimen. He c/o itching during his stay here and was treated with benadryl, creams, and aveeno soap. He was seen by psychiatry for insomnia, which resolved with medication. - Medication Discharge Medications: Ambulatory Orders Albuterol Sulfate Inhaler - [Ventolin HFA Inhaler -] 2 puff PO Q4H #1 inhaler Lisinopril [Prinivil] 5 mg PO DAILY #30 tablet 05/22/19 - Medication-Assisted Treatment (MAT) Medication-Assisted Treatment (MAT): No - Discharge Instructions Diet, activity, other medical instructions: Diet: as tolerated Activity: as tolerated Other medical instructions: Please seek aftercare and/or attend AA meetings. Please obtain primary care services at [facility]. - Diagnosis (1) Alcohol dependence with uncomplicated withdrawal Current Visit: No Status: Acute - Follow-up Referral Minutes to complete discharge: 20 - AMA Did Patient Leave Against Medical Advice: No Additional Comments: Patient medically stable for discharge and has not urgent or immediate medical problems that require intervention or monitoring.
== END 2019-05-22 13:19 | disposition home or self-care (01) | DRG 772 ==
LOC: YASAS 15:07 → Y3W 15:08
PROVIDERS: ADMIT Neuromusculoskeletal Medicine & OMM; ATTEND Neuromusculoskeletal Medicine & OMM
PROC: HZ42ZZZ Group Counseling for Substance Abuse Treatment, Cognitive-Behavioral (ICD-10-PCS; principal; 2019-05-05)
DX: F10.230 Alcohol dependence with withdrawal, uncomplicated (principal); F10.24 Alcohol dependence with alcohol-induced mood disorder; F10.282 Alcohol dependence with alcohol-induced sleep disorder; J45.20 Mild intermittent asthma, uncomplicated; R21 Rash and other nonspecific skin eruption; L29.9 Pruritus, unspecified; L98.8 Other specified disorders of the skin and subcutaneous tissue; G47.00 Insomnia, unspecified; Z87.891 Personal history of nicotine dependence; Z59.0 Homelessness
CPT/HCPCS: 82962; 94640